=== PATIENT | female | born 1990 | race Caucasian/White ===

== ENCOUNTER → 2024-06-20 10:30 | Outpatient (REF) | payer BC, SELFPAY | LOC: HWCARD 10:30 | PROVIDERS: ATTENDING PHYSICIAN Nurse Practitioner Psychiatric/Mental Health; FAMILY PHYSICIAN Internal Medicine | DX: R00.2 Palpitations (principal) | CPT/HCPCS: 93005 ==

== ENCOUNTER 2025-03-04 19:31 | Inpatient (IN) | payer BC, SELFPAY ==
[2025-03-04 20:22] VITALS: BP 115/81; BMI 35.6
[2025-03-04 20:34] LABS: Hematocrit 29.9 % (37.0-47.0); Hemoglobin 9.6 g/dL (12.0-16.0); Mean Corp Hgb Conc. 32.1 g/dL (33.0-37.0); Mean Corpuscular Volume 85.7 fL (81.0-99.0); Nucleated Red Blood Cells % 0 %; Platelet Count 224 10^3/uL (130-400); Red Cell Dist. Width 14.7 % (11.5-14.5)
[2025-03-04] MEDS: CYTOTEC 25 MICROGRAM VAG (21:22)
[2025-03-05] MEDS: CYTOTEC 50 MICROGRAM PO ×3 (01:39→11:32)
[2025-03-05] MEDS: SYNTHROID 150 MCG PO (05:54)
[2025-03-05] MEDS: LEXAPRO 20 MG PO (08:04)
[2025-03-05] MEDS: STADOL 1 MG IV (12:15)
[2025-03-05] MEDS: CYTOTEC PO (15:39)
[2025-03-05] MEDS: LR 1000 IV ×2 (15:54→23:56)
[2025-03-05] MEDS: PITOCIN 30 UNITS/NSS 500 ML IV ×3 (15:55→23:53)
[2025-03-05] MEDS: ZITHROMAX INFUSION 250 IV (18:01)
[2025-03-05] MEDS: BICITRA 30 ML PO (18:01)
[2025-03-05] MEDS: TYLENOL 975 MG PO (18:01)
[2025-03-05] MEDS: CLEOCIN 50 IV (18:02)
[2025-03-05] MEDS: GENTAMICIN 60 MG IV (18:33)
[2025-03-05 18:42] LABS: Cord ABG Comment CORD BLOOD
[2025-03-05 18:42] LABS: Cord ABG Comment CORD BLOOD
[2025-03-05 18:44] LABS: B.E. Cord ABG -1.8 mMOL/L; HCO3 Cord ABG 23.7 mmol/L; O2 Saturation % Cord ABG 53.9 %; PCO2 Cord ABG 42 mmHg; PO2 Cord ABG 25 mmHg; pH Cord ABG 7.36
[2025-03-05] MEDS: HEMABATE 250 MCG IM (18:44)
[2025-03-05 18:50] LABS: B.E. Cord ABG -4.6 mMOL/L; HCO3 Cord ABG 22.9 mmol/L; PCO2 Cord ABG 51 mmHg; PO2 Cord ABG 26 mmHg; pH Cord ABG 7.26
[2025-03-05 18:51] LABS: O2 Saturation % Cord ABG 37.1 %
[2025-03-05] MEDS: COLACE PO (20:00)
[2025-03-05] MEDS: TORADOL 15 MG IV (22:02)
[2025-03-06] MEDS: TORADOL 15 MG IV ×3 (04:47→16:19)
[2025-03-06 05:22] LABS: Hematocrit 27.6 % (37.0-47.0); Hemoglobin 8.8 g/dL (12.0-16.0); Mean Corp Hgb Conc. 31.9 g/dL (33.0-37.0); Mean Corpuscular Volume 86.5 fL (81.0-99.0); Platelet Count 202 10^3/uL (130-400); Red Cell Dist. Width 14.6 % (11.5-14.5)
[2025-03-06] MEDS: SYNTHROID 150 MCG PO (06:07)
--- NOTE | 2025-03-06 07:55 | W.PN.ANS.POP ---
Anesthesia Post Operative
- Anesthesia Post Op Note
Vital Signs Stable-See Nursing Note: Yes
Airway Patent: Yes
Adequate Pain Control: Yes
Change in Mental Status: No
Current Postoperative Nausea & Vomiting: No
Anesthesia Complications: No
General Anesthetic Recall: No
Unplanned Admission: No
Post Op Hydration Adequate: Yes
[2025-03-06] MEDS: LEXAPRO 20 MG PO (08:06)
[2025-03-06] MEDS: COLACE 100 MG PO ×2 (08:06→21:41)
[2025-03-06] MEDS: FEOSOL 325 MG PO (10:00)
[2025-03-06] MEDS: PRENATAL PLUS 1 TABLET PO (10:00)
[2025-03-06 14:03] LABS: Syphilis/T. pallidum Ab Reflex Negative (Negative)
[2025-03-06] MEDS: TYLENOL 650 MG PO (21:41)
[2025-03-06] MEDS: MOTRIN 600 MG PO (21:41)
[2025-03-07] MEDS: MOTRIN 600 MG PO ×3 (04:51→19:28)
[2025-03-07] MEDS: TYLENOL 650 MG PO (04:51)
[2025-03-07] MEDS: SYNTHROID 150 MCG PO (04:51)
[2025-03-07] MEDS: FEOSOL 325 MG PO (09:20)
[2025-03-07] MEDS: PRENATAL PLUS 1 TABLET PO (09:20)
[2025-03-07] MEDS: COLACE 100 MG PO ×2 (09:20→19:20)
[2025-03-07] MEDS: LEXAPRO 20 MG PO (09:23)
[2025-03-07] MEDS: ROXICODONE 5 MG PO ×2 (11:30→19:28)
[2025-03-08] MEDS: MOTRIN 600 MG PO ×2 (01:53→08:27)
[2025-03-08] MEDS: ROXICODONE 5 MG PO ×2 (01:54→08:27)
[2025-03-08] MEDS: SYNTHROID 150 MCG PO (06:01)
[2025-03-08] MEDS: LEXAPRO 20 MG PO (08:27)
[2025-03-08] MEDS: PRENATAL PLUS 1 TABLET PO (08:27)
[2025-03-08] MEDS: COLACE 100 MG PO (08:27)
[2025-03-08] MEDS: FEOSOL 325 MG PO (08:27)
--- NOTE | 2025-03-08 11:29 | W.DS.TRANS ---
DC Summary - [employer]
-
Discharge Instructions:
Discharge Diagnosis/Procedures section
Instructions:
Stand-Alone Forms: LDRP Delivery
Changes to Home Medications: No
Discharge Medications:
DC Medications w/original date entered in [employer]
escitalopram oxalate 10 mg tablet (Lexapro) 20 mg PO DAILY anxiety 07/12/23
levothyroxine 150 mcg tablet (Synthroid) 150 mcg PO DAILY Thyroid 07/12/23
prenat.vits,gabe,pzu-jpru-kmxvd 1 tab PO DAILY Supplement 07/12/23
ibuprofen 600 mg tablet 600 mg PO Q6HPRN PRN cramps #30 tabs 03/08/25
oxycodone 5 mg tablet 5 mg PO Q4HPRN PRN moderate pain #10 tabs 03/08/25
Home Medication Changes
Pending Results: Yes
Additional Pending Results:
placenta path report
Total time spent discharging patient (in min): 25
== END 2025-03-08 12:12 | disposition home or self-care (01) | DRG 788 ==
LOC: LDRP 19:31
PROVIDERS: Obstetrics & Gynecology; ADMITTING PHYSICIAN Student in an Organized Health Care Education/Training Program; FAMILY PHYSICIAN Internal Medicine
PROC: 3E0P7VZ Introduction of Hormone into Female Reproductive, Via Natural or Artificial Opening (ICD-10-PCS; 2025-03-04)
PROC: 10D00Z1 Extraction of Products of Conception, Low, Open Approach (ICD-10-PCS; 2025-03-05)
PROC: 0U7C7DJ Dilation of Cervix with Intraluminal Device, Temporary, Via Natural or Artificial Opening (ICD-10-PCS; 2025-03-05)
PROC: 6A550ZT Pheresis of Cord Blood Stem Cells, Single (ICD-10-PCS; 2025-03-05)
DX: O32.8XX0 Maternal care for other malpresentation of fetus, not applicable or unspecified (principal); Z3A.39 39 weeks gestation of pregnancy; Z37.0 Single live birth; O99.214 Obesity complicating childbirth; Z88.0 Allergy status to penicillin; O99.02 Anemia complicating childbirth; F32.A Depression, unspecified; F41.9 Anxiety disorder, unspecified; O99.344 Other mental disorders complicating childbirth; E89.0 Postprocedural hypothyroidism; O62.2 Other uterine inertia; O99.284 Endocrine, nutritional and metabolic diseases complicating childbirth; Z85.850 Personal history of malignant neoplasm of thyroid; Z79.890 Hormone replacement therapy
CPT/HCPCS: 82803; 85025; 85027; 86780; 86850; 86900; 86901; 88307